=== PATIENT | female | born 1955 | race Caucasian/White ===

== ENCOUNTER 2018-04-17 07:54 | Day surgery (SDC) | payer OTHER ==
[~2018-04-17] VITALS: Ht 152.4 cm; Wt 60.3 kg
[~2018-04-17 07:54] MED LIST: CEFAZOLIN SOD 1 GM/ ISO 50 ML PREMIX IV ONE
[2018-04-17] MEDS ORDERED: LIDOCAINE 1%, 20 ML MDV 20 ML ONE (09:07)
[2018-04-17] MEDS ORDERED: SEVOFLURANE 15 MIN GAS INH ONE (10:00)
[2018-04-17] MEDS ORDERED: fentaNYL CITRATE/PF 100 MCG/2 ML AMP IVP ONE (10:00)
[2018-04-17] MEDS ORDERED: ONDANSETRON HCL 4 MG/2 ML VIAL IVP ONE (10:00)
[2018-04-17] MEDS ORDERED: BUPIVACAINE /PF 0.25% 30 ML VIAL INJ ONE (10:00)
[2018-04-17] MEDS ORDERED: MIDAZOLAM HCL 5 MG/5 ML VIAL IVP ONE (10:00)
[2018-04-17] MEDS ORDERED: PROPOFOL 200MG/ 20ML VIAL (DIPRIVAN) IV ONE (10:00)
[2018-04-17] MEDS ORDERED: ROCURONIUM BROMIDE 10 MG/ML (ZEMURON) IV ONE (10:00)
[2018-04-17] MEDS ORDERED: NS IRRIG SOLN 1000 ML IR ONE (10:00)
[2018-04-17] MEDS ORDERED: LR 1,000 ML IV.SOLN IV ONE (10:00)
[2018-04-17] MEDS ORDERED: LR 1,000 ML IV SCH (11:22)
[2018-04-17] MEDS ORDERED: MORPHINE 4 MG/ML INJ. SYRINGE IVP PRN ×3 (11:30)
[2018-04-17] MEDS ORDERED: METOCLOPRAMIDE HCL 10 MG/2 ML VIAL IVP PRN (11:30)
[2018-04-17] MEDS ORDERED: D5/0.45 NS 1,000 ML IV SCH (11:50)
[2018-04-17] MEDS ORDERED: HYDROmorphone 1 MG INJ. 1 MG/ML AMPUL IVP PRN (12:00)
[2018-04-17] MEDS ORDERED: HYDROcodone/ACETAMIN 5-325 MG TAB (NORCO/ VICODIN) PO PRN ×2 (12:00)
[2018-04-17] MEDS ORDERED: MORPHINE 4 MG/ML INJ. SYRINGE ONE (12:01)
[2018-04-17] MEDS ORDERED: METOCLOPRAMIDE HCL 10 MG/2 ML VIAL ONE (12:35)
[2018-04-17] MEDS ORDERED: DIPHENHYDRAMINE INJ 50 MG/ML VIAL IVP ONE (12:45)
[2018-04-17] MEDS ORDERED: HYDROcodone/ACETAMIN 5-325 MG TAB (NORCO/ VICODIN) ONE (13:41)
[2018-04-17 18:43] VITALS: BP_SYST 95
== END 2018-04-17 15:30 | disposition home or self-care (01) ==
LOC: SDS 07:54 → STU 07:58 → SDS 15:30
PROVIDERS: ATTEND Colon & Rectal Surgery
DX: C50.912 Malignant neoplasm of unspecified site of left female breast (principal); C77.3 Secondary and unspecified malignant neoplasm of axilla and upper limb lymph nodes; E11.9 Type 2 diabetes mellitus without complications; Z86.010 Personal history of colon polyps; G45.9 Transient cerebral ischemic attack, unspecified; E11.65 Type 2 diabetes mellitus with hyperglycemia; Z98.890 Other specified postprocedural states; Z80.3 Family history of malignant neoplasm of breast; Z79.899 Other long term (current) drug therapy; Z79.84 Long term (current) use of oral hypoglycemic drugs; Z88.8 Allergy status to other drugs, medicaments and biological substances; Z88.2 Allergy status to sulfonamides
CPT/HCPCS: 19081; 19301; 38525; 78195; 88307; 88329; 88333; A9541; J0690; J2001; J2250; J2270; J2405; J2704; J2765; J3010; J3490; J7120; 76098-TC